=== PATIENT | female | born 1990 | race Caucasian/White ===

== ENCOUNTER 2021-03-02 13:28 | Observation (INO) | payer BC, SELFPAY ==
[2021-03-02 14:41] VITALS: BP 102/66; PULSE 66; TEMP 36.9; BMI 34.8
--- NOTE | 2021-03-02 14:41 | OBADM ---
This patient, Florencia Davey, admitted to the OB room [facility] Post 116 for observation. Patient/family oriented to hospital policies and general routines including ID bracelet, bed and alarms, visiting hours, pain management, procedures, bathroom and other care routines, personal items, smoking policy, room service/diet, and visiting hours. Patient/Family are encouraged to report perceived risks to care and to ask questions if they do not understand what they are told or what they should do.
[2021-03-02 14:52] LABS: Basophils Percent Auto 0.3 % (0.2-1.2); Eosinophils Percent Auto 0.3 % (0-4.4); Hemoglobin 12.9 g/dL (12.0-15.0); Immature Granulocyte Absolute 0.04 K/mm3 (0.00-0.031); Immature Granulocyte Percent A 0.4 % (0-0.5); Lymphocytes Absolute Auto 2.03 K/mm3 (0.9-3.2); Lymphocytes Percent Auto 18.8 % (18.3-44.2); Mean Corpuscular HGB Conc 33.9 g/dl (32-36); Mean Corpuscular Hemoglobin 32.3 pg (26-34); Mean Corpuscular Volume 95.2 fl (80-100); Mean Platelet Volume 10.6 fl (7.4-10.4); Monocytes Absolute Auto 0.8 K/mm3 (0.1-0.6); Neutrophils Absolute Auto 7.9 K/mm3 (1.3-6.7); Neutrophils Percent Auto 73.2 % (45.5-73.1); Platelet Count Result 295 k/mm3 (150-375); Red Blood Count 3.99 M/mm3 (4.2-5.4); Red Cell Distribution Width 13.4 % (11.5-14.5); White Blood Count 10.8 K/mm3 (4.5-10.0)
[2021-03-02 15:02] LABS: Alanine Aminotransferase 38 U/L (4-35); Albumin Level 3.7 g/dL (3.5-5.1); Alkaline Phosphatase 94 U/L (38-126); Anion Gap 7 mmol/L (8-16); Aspartate Amino Transferase 39 U/L (14-36); Bilirubin,Total 0.6 mg/dL (0.2-1.3); Blood Urea Nitrogen 9 mg/dL (7-17); Calcium 9.1 mg/dL (8.4-10.2); Carbon Dioxide 25 mmol/L (22-30); Chloride 104 mmol/L (98-107); Estimated Glomerular Filt Rate > 60; Glucose 77 mg/dL (65-105); Potassium 3.6 mmol/L (3.4-5.0); Sodium 136 mmol/L (137-145)
[2021-03-02] MEDS: DEXTROSE 5%/LACTATED RINGERS 1,000 ML 999 ML IV CONT (15:04)
--- NOTE | 2021-03-02 16:27 | P.PNOB_ITS ---
OB - Triage/Final Diagnosis Visit Information Date of evaluation: 03/02/21 Reason for evaluation: other ( dehydration in ) Comments/Additional reasons for admission: I have assessed the risk for this patient, Florencia Davey, and determined that she would benefit from observation care. Evaluation Laboratory results: Laboratory Tests 03/02/21 03/02/21 14:38 14:38 WBC 10.8 H RBC 3.99 L Hgb 12.9 Hct 38.0 MCV 95.2 MCH 32.3 MCHC 33.9 RDW 13.4 Plt Count 295 MPV 10.6 H Immature Gran % (Auto) 0.4 Neut % (Auto) 73.2 H Lymph % (Auto) 18.8 [place] % (Auto) 7.0 Eos % (Auto) 0.3 Baso % (Auto) 0.3 Lymph # (Auto) 2.03 [place] # (Auto) 0.8 H Eos # (Auto) 0.0 Baso # (Auto) 0.0 Abs Immat Gran (auto) 0.04 H Absolute Neuts (auto) 7.9 H Absolute Nucleated RBC 0.0 Nucleated RBC % 0.0 Sodium 136 L Potassium 3.6 Chloride 104 Carbon Dioxide 25 Anion Gap 7 L BUN 9 Creatinine 0.60 L Estim Creat Clear Calc Not Reportable Estimated GFR > 60 Glucose 77 Calcium 9.1 Total Bilirubin 0.6 AST 39 H ALT 38 H Alkaline Phosphatase 94 Total Protein 7.0 Albumin 3.7 Vital signs: Vital Signs - 24 hr 03/02/21 14:41 Temperature 98.5 F Pulse Rate 66 Blood Pressure 102/66
--- NOTE | 2021-03-02 16:50 | PC.NURSE ---
Dr. Alberto Harkins informed of lab results including slightly elevated ALT and AST. Informed pt had Pepcid already this morning. Pt denies nausea and pain and would like to eat and go home if possible. OK to order U/S of GB as outpatient since pt wasn't NPO prior to arrival. Discharge orders received.
== END 2021-03-02 17:26 | disposition home or self-care (01) ==
PROVIDERS: Admitting Provider Obstetrics & Gynecology; PCP Family Medicine; Visit Provider Obstetrics & Gynecology
DX: O26.892 Other specified pregnancy related conditions, second trimester (principal); E86.0 Dehydration; Z3A.19 19 weeks gestation of pregnancy
CPT/HCPCS: 36415; 80053; 85025; 96360; G0378; G0379; J7121

== ENCOUNTER 2021-03-08 08:38 | Outpatient (CLI) | payer BC, SELFPAY ==
--- NOTE | ~2021-03-08 | US_ITS ---
EXAMINATION: US right upper quadrant DATE: 03/08/2021 09:09 INDICATION: Upper abdominal pain TECHNIQUE: Multiple grayscale and Doppler ultrasound images of the abdomen were obtained. COMPARISON: None available FINDINGS: Bowel gas obscures visualization of the pancreas. The visualized portions of the pancreas a re unremarkable. The liver is normal with normal echogenicity and echotexture. No surface nodularity. Normal hepatopetal flow in the main portal vein. There is a 3/sludge in the nondistended gallbladder . No gallbladder wall thickening or pericholecystic fluid are identified. The normal common bile duct measures 3 mm. There was no sonographic Lutz sign. IMPRESSION: 1. Sludge or debris in the nondistended gallbladder. Reviewed, dictated and finalized at location B.
== END 2021-03-08 08:39 | disposition home or self-care (01) ==
LOC: ANHIMG 08:42
PROVIDERS: PCP Family Medicine; Visit Provider Obstetrics & Gynecology
DX: R10.10 Upper abdominal pain, unspecified (principal)
CPT/HCPCS: 76705

== ENCOUNTER 2021-04-06 10:17 | Observation (INO) | payer BC, SELFPAY ==
--- NOTE | ~2021-04-06 | US_ITS ---
US abdomen limited INDICATION: Abdominal pain PROCEDURE: Realtime right upper abdominal ultrasound. COMPARISON: No prior studies for comparison. FINDINGS: The pancreas is normal without focal mass or pancreatic ductal dilation. Liver echotexture is normal without focal mass or intrahepatic biliary dilatation. There is normal directional flow i n the portal vein. There is gallbladder sludge. Common bile duct measures 7 mm. No sonographic Lutz's sign. IMPRESSION: 1: Gallbladder sludge. Borderline size common duct measuring 7 mm. Reviewed, dictated and finalized at location A.
--- NOTE | ~2021-04-06 | MR_ITS ---
EXAMINATION: MR MRCP wo con/w 3D wo ind pp DATE: 04/07/2021 07:36 INDICATION: Gallbladder sludge. Elevated liver function tests. TECHNIQUE: Magnetic resonance imaging (MRI) of the abdomen was performed without intravenous contrast . Sequences included coronal T2-weighted SS-FSE, coronal T2-weighted FS SS-FSE, coronal T2-weighted F S FIESTA, axial T2-weighted FS FIESTA, axial T2-weighted FIESTA, sagittal T2-weighted SS-FSE, axial T 1-weighted dual-echo FSPGR, axial T2-weighted SS-FSE, axial T1-weighted LAVA, axial T2-weighted STIR FSE. Thick-slab T2-weighted FRFSE-XL images were obtained for magnetic resonance cholangiopancreatogr aphy (MRCP). Rotating maximum intensity projection 3-D reconstructions of the volumetric data were cr eated by the technologist. COMPARISON: None. FINDINGS: ABDOMEN MRCP: Mild intrahepatic biliary ductal dilation and dilation of the common bile duct to 9 mm in maximal diameter. There is an approximately 4-5 mm obstructing stone at the ampulla which can also be seen on the sagittal and coronal SS FSE images. ABDOMEN MRI: Heart size is normal. No pericardial effusion. Tiny bilateral posterior layering pleural effusions. The gallbladder is dilated to 3.7 cm in diameter and measuring 11.7 cm in length. There is dependentl y layering sludge within the gallbladder along but no additional low signal intensity gallstones. The re is no gallbladder wall thickening however there is trace amount of pericholecystic ascites. Liver is otherwise unremarkable. Spleen, pancreas and bilateral adrenal glands are normal. Mild bilateral h ydronephrosis which may be due to mass effect upon the ureters resulting from the gravid uterus which is not diagnostically evaluated. The fetus is in vertex position and the placenta is anterior. Visua lized portions of the bowels are unremarkable. No pathologically enlarged abdominal lymphadenopathy. Bones are unremarkable. IMPRESSION: 1. Choledocholithiasis with obstructing 4-5 mm stone at the ampulla with mild intra and extra hepatic biliary ductal dilation as well as mild dilation of the gallbladder with minimal pericholecystic asc ites. 2. Mild bilateral hydronephrosis likely resulting from extrinsic compression on the ureters resulting from the gravid uterus. 3. Tiny bilateral pleural effusions. Reviewed, dictated and finalized at location A. IMPRESSION: 1. Choledocholithiasis with obstructing 4-5 mm stone at the ampulla with mild i ntra and extra hepatic biliary ductal dilation as well as mild dilation of the gallbladder with minimal pericholecystic ascites. 2. Mild bilateral hydronephrosis likely resulting from extrinsic compression on the ureters resulting from the gravid uterus. 3. Tiny bilateral pleural effusions.
[2021-04-06 10:52] VITALS: BP 109/70; PULSE 73; TEMP 36.6
[2021-04-06] MEDS: DEXTROSE 5%/LACTATED RINGERS 1,000 ML 150 ML IV CONT ×3 (11:25→22:30)
[2021-04-06 11:26] LABS: Basophils Percent Auto 0.3 % (0.2-1.2); Eosinophils Absolute Auto 0.1 K/mm3 (0-0.3); Eosinophils Percent Auto 0.6 % (0-4.4); Hematocrit 38.3 % (37.0-47.0); Hemoglobin 13.3 g/dL (12.0-15.0); Immature Granulocyte Absolute 0.04 K/mm3 (0.00-0.031); Immature Granulocyte Percent A 0.3 % (0-0.5); Lymphocytes Percent Auto 11.8 % (18.3-44.2); Mean Corpuscular HGB Conc 34.7 g/dl (32-36); Mean Corpuscular Hemoglobin 33.1 pg (26-34); Mean Corpuscular Volume 95.3 fl (80-100); Mean Platelet Volume 10.4 fl (7.4-10.4); Monocytes Absolute Auto 0.7 K/mm3 (0.1-0.6); Monocytes Percent Auto 5.2 % (2.6-8.5); Neutrophils Absolute Auto 10.4 K/mm3 (1.3-6.7); Neutrophils Percent Auto 81.8 % (45.5-73.1); Platelet Count Result 334 k/mm3 (150-375); Red Blood Count 4.02 M/mm3 (4.2-5.4); Red Cell Distribution Width 13.8 % (11.5-14.5); White Blood Count 12.7 K/mm3 (4.5-10.0)
[2021-04-06] MEDS: FAMOTIDINE 20 MG/2 ML VIAL IV PUSH (11:26)
[2021-04-06 11:37] LABS: Alanine Aminotransferase 111 U/L (4-35); Albumin Level 3.7 g/dL (3.5-5.1); Alkaline Phosphatase 195 U/L (38-126); Anion Gap 6 mmol/L (8-16); Aspartate Amino Transferase 93 U/L (14-36); Bilirubin,Total 3.5 mg/dL (0.2-1.3); Blood Urea Nitrogen 7 mg/dL (7-17); Calcium 9.1 mg/dL (8.4-10.2); Carbon Dioxide 26 mmol/L (22-30); Chloride 105 mmol/L (98-107); Estimated Glomerular Filt Rate > 60; Glucose 76 mg/dL (65-110); Potassium 3.5 mmol/L (3.4-5.0); Sodium 137 mmol/L (137-145); Uric Acid 3.5 mg/dL (2.5-7.5)
[2021-04-06 12:04] VITALS: BMI 35.1
--- NOTE | 2021-04-06 12:05 | OBADM ---
This patient, Florencia Davey, admitted to the OB room [facility] Post 111 for observation. Patient/family oriented to hospital policies and general routines including ID bracelet, bed and alarms, visiting hours, pain management, procedures, bathroom and other care routines, personal items, smoking policy, room service/diet, and visiting hours. Patient/Family are encouraged to report perceived risks to care and to ask questions if they do not understand what they are told or what they should do.
--- NOTE | 2021-04-06 13:22 | PC.NURSE ---
Pt here with complaints of upper abdominal pain. States 02/20 had pain and vomiting, 03/08 had an ultrasound that showed gallbladder sludge. Has been drinking apple cider vinegar to help reduce gallbladder sludge. Pain was better and then worsened 04/03, states it feels worse when she takes a deep breath.
--- NOTE | 2021-04-06 16:27 | PM.IMHP ---
H&P: HPI History of Present Illness Date/Time: 04/06/21 16:27 Thirty-three year 1 para 1 admitted at with an EDC 10/19/2020, and EDC of 07/26/2021, presents at 24 weeks gestation with right upper quadrant pain. She has been hospitalized 20s and has an ultrasound that shows sludge in the gallbladder. She has been unable to keep much down and then was elevated liver function test. Otherwise antenatally things have gone well. She is admitted for IV hydration and support as well as consult with General surgery concerning her gallbladder. Chief Complaint: 24 week with right upper quadrant pain Review of Systems Review of Systems: All systems reviewed & are unremarkable except as noted in HPI and below Meds Home Medications and Allergies Home Medications Medication Instructions Recorded Confirmed Type PNV cmb#95-ferrous fumarate-FA 1 tablet PO DAILY 03/02/21 04/06/21 History [] cetirizine [Zyrtec] 10 mg PO DAILY 03/02/21 04/06/21 History sertraline [Zoloft] 25 mg PO DAILY 03/02/21 04/06/21 History hydroxyzine HCl 25 mg PO DAILY PRN 04/06/21 04/06/21 History omeprazole 20 mg PO BID 04/06/21 04/06/21 History Allergies Allergy/AdvReac Type Severity Reaction Status Date / Time orange (food color) Allergy Itching Verified 03/02/21 15:58 red dye AdvReac Gastrointestinal Verified 03/02/21 15:59 Upset Vital Signs Vital Signs - 24 hr 04/06/21 10:52 Temperature 97.8 F Pulse Rate 73 Blood Pressure 109/70 Exam Const: General: no acute distress Eyes: General: appearance normal, both eyes and all related structures Neck: Neck: supple and no JVD Thyroid: thyroid normal Resp: Effort & Inspection: normal respiratory effort Auscultation: clear to auscultation bilaterally Cardio: Rate: regular rate Rhythm: regular rhythm GI: Inspection: normal to inspection GI Palp: Yes abdominal tenderness ( Right upper quadrant pain present) Percussion: Yes normal to percussion : General: Yes bladder normal to palpation External Female Exam: normal external appearance Speculum Exam - Vagina: normal vaginal discharge and No vaginal bleeding Speculum Exam - Cervix: nontender Bimanual exam- vagina & uterus: bladder normal to palpation, No Cervical tenderness present and other ( uterus is gravid and soft with normal heart tones) OB/external & speculum: No vaginal bleeding Manual OB Exam: Not dilated nor effaced Skin: General skin exam: no rashes or lesions noted Extrem: General: normal to inspection and no edema Psych: Mental Status: mental status grossly normal Affect: normal affect H&P: Results Labs Labs: Short CBC 04/06/21 Range/Units 11:18 WBC 12.7 H (4.5-10.0) K/mm3 Hgb 13.3 (12.0-15.0) g/dL Hct 38.3 (37.0-47.0) % Plt Count 334 (150-375) k/mm3 BMP 04/06/21 11:18 Sodium 137 Potassium 3.5 Chloride 105 Carbon Dioxide 26 BUN 7 Creatinine 0.60 L Glucose 76 Calcium 9.1 Liver Function 04/06/21 Range/Units 11:18 Total Bilirubin 3.5 H (0.2-1.3) mg/dL AST 93 H (14-36) U/L ALT 111 H (4-35) U/L Alkaline Phosphatase 195 H (38-126) U/L Albumin 3.7 (3.5-5.1) g/dL Assessment and Plan Additional Plan impression common 24 week with right upper quadrant pain suspected to be related to gallbladder Plan: IV hydration support. Again a surgical console. Watch for signs of labor and delivery
--- NOTE | 2021-04-06 17:14 | PM.CNGS ---
Assessment and Plan Assessment and plan (1) Right upper quadrant pain: Code(s): R10.11 - Right upper quadrant pain Status: Acute Assessment and Plan: I have reviewed the patient's ultrasound from February and ordered a repeat ultrasound today which shows gallbladder sludge and borderline dilated common bile duct measuring 7 mm. She is very symptomatic and states that at times she has had trouble getting enough nutrition and has even lost some weight during the . With her dilated bile duct and elevated liver enzymes, this could signify an obstruction within the common bile duct. I would like to plan for an MRI tomorrow to assess for any potential obstructive process. With how symptomatic she is, laparoscopic cholecystectomy could be considered during her . I discussed with her that we do not typically recommend surgery if it can be delayed until after , but in her case with how symptomatic she is, she may benefit from surgery at this stage in her . I discussed with her that there are some risks to both herself and her to proceeding with surgery during 2nd trimester, but these risks are still generally low. If she has evidence of common bile duct obstruction, she may need GI consultation before proceeding with laparoscopic cholecystectomy. Will await MRI results, plan for repeat labs in the morning, and discuss further with the patient tomorrow. Will allow her to have a low-fat diet this evening and make her NPO after midnight. (2) Abnormal gallbladder ultrasound: Code(s): R93.2 - Abnormal findings on diagnostic imaging of liver and biliary tract Status: Acute (3) Elevated liver enzymes: Code(s): R74.8 - Abnormal levels of other serum enzymes Status: Acute (4) 24 weeks gestation of : Code(s): Z3A.24 - 24 weeks gestation of Status: Acute History of Present Illness Consult details Consult date: 04/06/21 Reason for consult: abdominal pain Requesting physician: Flavio Marshall MD Narrative: This is a 31-year-old woman who was admitted to the OB department for observation for abdominal pain during . She is currently 24 weeks . She has been experiencing upper abdominal pain for the past 5-6 weeks. She states that when this 1st started, it was waking her up from sleep but this was not related to anything in particular she ate. She has been experiencing nausea and vomiting along with this. Her pains have become more frequent and constant now. She states that even eating ice chips is causing some upper abdominal pain. She had an ultrasound 1 month ago which showed evidence of gallbladder sludge. She denies any fevers or chills. She was put omeprazole, but this does not appear to be helping. Review of Systems Review of Systems: All systems reviewed & are unremarkable except as noted in HPI and below Constitutional: Constitutional: Denies chills and Denies fever(s) Eyes: Eyes: Denies change in vision ENT: Denies hearing loss, Denies neck pain and Denies sore throat Cardiovascular: Cardiovascular: Denies chest pain and Denies dyspnea Respiratory: Respiratory: Denies cough, Denies dyspnea and Denies wheezing Gastrointestinal: Gastrointestinal: Reports as per HPI Comments: Twenty-four weeks Genitourinary: Genitourinary: Denies hematuria and Denies dysuria Musculoskeletal: Musculoskeletal: Denies arthralgias, Denies joint swelling and Denies neck pain Allergic/Immunologic: Allergic/Immunologic: Denies wheezing [facility] Past Medical History Medical History (Updated 04/06/21 @ 17:27 by John Paul Torre DO) No significant medical problems Surgical History Surgical History (Updated 04/06/21 @ 17:24 by John Paul Torre DO) History of tonsillectomy and adenoidectomy Family History Family History Mother No problems noted.
[2021-04-06 17:58] LABS: Bilirubin Indirect 1.1 mg/dL (0-1.1)
[2021-04-06 18:30] VITALS: RESP 18
[2021-04-06 19:51] VITALS: RESP 18; TEMP 36.9
[2021-04-06 20:03] VITALS: BP 105/62; PULSE 55
[2021-04-06] MEDS: HYDROcodone/acetaminophen (*CRX) 5-325 MG TABLET PO ×2 (20:17→23:57)
[2021-04-06 23:57] VITALS: BP 121/62; PULSE 50
[2021-04-07] VITALS (27 sets, daily range): BP systolic 91–126; BP diastolic 57–65; PULSE 45–63; RESP 16; TEMP 36.4–36.6; O2SAT 98–100
[2021-04-07] MEDS: HYDROcodone/acetaminophen (*CRX) 5-325 MG TABLET PO ×5 (04:28→22:08)
[2021-04-07] MEDS: DEXTROSE 5%/LACTATED RINGERS 1,000 ML 150 ML IV CONT ×3 (04:28→18:46)
[2021-04-07] MEDS: FAMOTIDINE 20 MG/2 ML VIAL IV PUSH ×2 (04:31→17:37)
[2021-04-07 04:55] LABS: Hematocrit 35.1 % (37.0-47.0); Mean Corpuscular HGB Conc 34.2 g/dl (32-36); Mean Corpuscular Hemoglobin 32.1 pg (26-34); Mean Corpuscular Volume 93.9 fl (80-100); Mean Platelet Volume 10.3 fl (7.4-10.4); Platelet Count Result 315 k/mm3 (150-375); Red Blood Count 3.74 M/mm3 (4.2-5.4); Red Cell Distribution Width 13.4 % (11.5-14.5); White Blood Count 9.8 K/mm3 (4.5-10.0)
[2021-04-07 05:51] LABS: Alanine Aminotransferase 89 U/L (4-35); Albumin Level 3.3 g/dL (3.5-5.1); Anion Gap 5 mmol/L (8-16); Aspartate Amino Transferase 62 U/L (14-36); Bilirubin,Total 3.9 mg/dL (0.2-1.3); Blood Urea Nitrogen 4 mg/dL (7-17); Calcium 8.8 mg/dL (8.4-10.2); Carbon Dioxide 27 mmol/L (22-30); Chloride 105 mmol/L (98-107); Estimated CRCL calculation 109 ml/min; Estimated Glomerular Filt Rate > 60; Glucose 96 mg/dL (65-110); Potassium 3.4 mmol/L (3.4-5.0); Sodium 137 mmol/L (137-145); Total Protein 6.2 g/dL (6.3-8.2)
[2021-04-07 05:52] LABS: Alkaline Phosphatase 152 U/L (38-126); Lipase 62 U/L (23-300)
--- NOTE | 2021-04-07 08:41 | PM.OBPNVD ---
OB - PN: Subj Subjective Date/time seen: 04/07/21 08:41 Doing well this morning and had MRI with results pending OB - PN: Obj Data Labs CBC & Chem 7: 04/07/21 04:37 04/07/21 04:37 Labs: Laboratory Results - last 24 hr 04/06/21 04/06/21 04/06/21 11:18 11:18 17:29 WBC 12.7 H RBC 4.02 L Hgb 13.3 Hct 38.3 MCV 95.3 MCH 33.1 MCHC 34.7 RDW 13.8 Plt Count 334 MPV 10.4 Immature Gran % (Auto) 0.3 Neut % (Auto) 81.8 H Lymph % (Auto) 11.8 L [place] % (Auto) 5.2 Eos % (Auto) 0.6 Baso % (Auto) 0.3 Lymph # (Auto) 1.50 [place] # (Auto) 0.7 H Eos # (Auto) 0.1 Baso # (Auto) 0.0 Abs Immat Gran (auto) 0.04 H Absolute Neuts (auto) 10.4 H Absolute Nucleated RBC 0.0 Nucleated RBC % 0.0 Sodium 137 Potassium 3.5 Chloride 105 Carbon Dioxide 26 Anion Gap 6 L BUN 7 Creatinine 0.60 L Estim Creat Clear Calc Not Reportable Estimated GFR > 60 Glucose 76 Uric Acid 3.5 Calcium 9.1 Total Bilirubin 3.5 H Direct Bilirubin 1.0 H Indirect Bilirubin 1.1 AST 93 H ALT 111 H Alkaline Phosphatase 195 H Total Protein 7.0 Albumin 3.7 Lipase 04/07/21 04/07/21 04:37 04:37 WBC 9.8 RBC 3.74 L Hgb 12.0 Hct 35.1 L MCV 93.9 MCH 32.1 MCHC 34.2 RDW 13.4 Plt Count 315 MPV 10.3 Immature Gran % (Auto) Neut % (Auto) Lymph % (Auto) [place] % (Auto) Eos % (Auto) Baso % (Auto) Lymph # (Auto) [place] # (Auto) Eos # (Auto) Baso # (Auto) Abs Immat Gran (auto) Absolute Neuts (auto) Absolute Nucleated RBC Nucleated RBC % Sodium 137 Potassium 3.4 Chloride 105 Carbon Dioxide 27 Anion Gap 5 L BUN 4 L Creatinine 0.60 L Estim Creat Clear Calc 109 Estimated GFR > 60 Glucose 96 Uric Acid Calcium 8.8 Total Bilirubin 3.9 H Direct Bilirubin Indirect Bilirubin AST 62 H ALT 89 H Alkaline Phosphatase 152 H Total Protein 6.2 L Albumin 3.3 L Lipase 62 Imaging Radiologist's impression: Impressions Abdomen Ultrasound 04/06/21 12:38 IMPRESSION: 1: Gallbladder sludge. Borderline size common duct measuring 7 mm. OB - PN A/P Plan Comments: Await results of MRI and surgical consultation decision Time Spent With Patient Time: Total time spent is greater than 50% in coordination of care (as documented) at patient's floor/unit and/or counseling patient: Time with patient: less than 15 minutes Review of Systems Review of Systems: All systems reviewed & are unremarkable except as noted in HPI and below Exam Const: General: no acute distress Eyes: General: appearance normal, both eyes and all related structures Neck: Neck: supple and no JVD Thyroid: thyroid normal Resp: Effort & Inspection: normal respiratory effort Auscultation: clear to auscultation bilaterally Cardio: Rate: regular rate Rhythm: regular rhythm GI: Inspection: non-distended GI Palp: Yes Soft to palpation, No Tenderness to palpation present (GI) and No Guarding due to palpation present (GI) Auscultation: normal bowel sounds : General: Yes bladder normal to palpation External Female Exam: normal external appearance Speculum Exam - Vagina: normal vaginal discharge and No vaginal bleeding Speculum Exam - Cervix: nontender Bimanual exam- vagina & uterus: bladder normal to palpation and No Cervical tenderness present OB/external & speculum: No vaginal bleeding Skin: General skin exam: no rashes or lesions noted Extrem: General: normal to inspection and no edema Psych: Mental Status: mental status grossly normal Affect: normal affect
--- NOTE | 2021-04-07 11:48 | PM.PNGS ---
Progress Note: A&P Assessment and Plan (1) Choledocholithiasis with obstruction: Code(s): K80.51 - Calculus of bile duct without cholangitis or cholecystitis with obstruction Status: Acute Assessment and Plan: I reviewed the MRCP with radiology today and then discussed patient with Dr. Carolina. She has evidence of choledocholithiasis and will likely require ERCP. Will await further GI eval. Could consider discharge over weekend and she can follow up with me early next week. Can still consider lap sivan soon to prevent recurrent problems, or could try to hold off surgery until after delivering baby. (2) 24 weeks gestation of : Code(s): Z3A.24 - 24 weeks gestation of Status: Acute (3) Right upper quadrant pain: Code(s): R10.11 - Right upper quadrant pain Status: Acute (4) Abnormal gallbladder ultrasound: Code(s): R93.2 - Abnormal findings on diagnostic imaging of liver and biliary tract Status: Acute (5) Elevated liver enzymes: Code(s): R74.8 - Abnormal levels of other serum enzymes Status: Acute Subjective Subjective Date/Time Seen: 04/07/21 11:48 Interval history: Patient still having RUQ pain. Urine not very dark. Exam GI: Inspection: other (Gravid uterus) GI Palp: Yes Tenderness to palpation present (GI) (RUQ) Objective Data Vital Signs Vital Signs: Vital Signs - 24 hr 04/06/21 18:30 04/06/21 19:51 04/06/21 20:03 Temperature 36.9 C Pulse Rate 55 L Respiratory Rate 18 18 Blood Pressure 105/62 Pulse Oximetry 04/06/21 23:57 04/07/21 00:15 04/07/21 04:28 Temperature 36.6 C Pulse Rate 50 L 52 L Respiratory Rate 16 Blood Pressure 121/62 126/60 Pulse Oximetry 04/07/21 04:31 04/07/21 06:40 04/07/21 07:46 Temperature 36.6 C Pulse Rate 45 L 47 L Respiratory Rate Blood Pressure 125/65 93/58 L Pulse Oximetry 99 04/07/21 07:51 04/07/21 07:53 04/07/21 07:56 Temperature Pulse Rate 53 L Respiratory Rate Blood Pressure 103/57 L Pulse Oximetry 99 99 04/07/21 08:01 04/07/21 08:06 04/07/21 08:11 Temperature Pulse Rate Respiratory Rate Blood Pressure Pulse Oximetry 100 99 98 04/07/21 08:16 04/07/21 08:21 04/07/21 08:26 Temperature Pulse Rate Respiratory Rate Blood Pressure Pulse Oximetry 99 99 99 04/07/21 08:31 04/07/21 08:36 04/07/21 08:39 Temperature Pulse Rate Respiratory Rate Blood Pressure Pulse Oximetry 99 100 99 Intake/Output Intake/Output: Intake & Output 04/04/21 04/05/21 04/06/21 04/07/21 23:59 23:59 23:59 23:59 Intake Total 2000 1000 Output Total 600 350 Balance 1400 650 Meds/Results Medications: Active Medications Generic Name Dose Route Start Last Admin Trade Name Freq PRN Reason Stop Dose Admin Hydrocodone Bitart/Acetaminophen 1 - 2 tab 04/06/21 19:43 04/07/21 08:55 Hydrocodone/Acetaminophen (*Crx) 5-325 Mg Tablet PO 1 tab Q4-6H PRN Administration Pain Famotidine 20 mg 04/06/21 11:02 04/07/21 04:31 Famotidine 20 Mg/2 Ml Vial IV PUSH 20 mg Q12HR PRN Administration Heartburn Dextrose/Lactated Ringer's 1,000 mls @ 150 mls/hr 04/06/21 11:05 04/07/21 04:28 Dextrose 5%/Lactated Ringers IV CONT 150 mls/hr .[id number] KEITH Administration Metoclopramide HCl 10 mg 04/06/21 11:02 Metoclopramide Hcl Inj 10 Mg/2 Ml Vial IV PUSH Q6HR PRN Nausea Radiology Results: ITS Impressions Abdomen Ultrasound 04/06/21 12:38 IMPRESSION: 1: Gallbladder sludge. Borderline size common duct measuring 7 mm. MRCP 04/07/21 10:20 IMPRESSION: 1. Choledocholithiasis with obstructing 4-5 mm stone at the ampulla with mild intra and extra hepatic biliary ductal dilation as well as mild dilation of the gallbladder with minimal pericholecystic ascites. 2. Mild bilateral hydronephrosis likely resulting from extrinsic diana
--- NOTE | 2021-04-07 12:17 | WPDANESEPPF ---
Anes - Initial Pre Proc Eval Procedure: Operation Date: 04/07/21 14:15 Proposed Procedures p Endoscopic Retro Cholangiopancreatogram - Demarco Carolina MD Date/Time: 04/07/21 12:17 Surgeon: Flavio Marshall MD Pre Op Diagnosis: Abdomial Pain Patient Data Age: 31 Gender: F Height: 1.54 m Weight: 83 kg Last Vital Signs Temp 36.6 C 04/07/21 06:40 Pulse 53 L 04/07/21 07:53 Resp 16 04/07/21 00:15 BP 103/57 L 04/07/21 07:53 Pulse Ox 99 04/07/21 08:39 Allergies Allergy/AdvReac Type Severity Reaction Status Date / Time orange (food color) Allergy Itching Verified 03/02/21 15:58 red dye AdvReac Gastrointestinal Verified 03/02/21 15:59 Upset Home Medications Medication Instructions Recorded Confirmed Type PNV cmb#95-ferrous fumarate-FA 1 tablet PO DAILY 03/02/21 04/06/21 History [] cetirizine [Zyrtec] 10 mg PO DAILY 03/02/21 04/06/21 History sertraline [Zoloft] 25 mg PO DAILY 03/02/21 04/06/21 History hydroxyzine HCl 25 mg PO DAILY PRN 04/06/21 04/06/21 History omeprazole 20 mg PO BID 04/06/21 04/06/21 History Laboratory Tests 04/06/21 04/07/21 04/07/21 17:29 04:37 04:37 WBC 9.8 K/mm3 K/mm3 (4.5-10.0) RBC 3.74 M/mm3 L M/mm3 (4.2-5.4) Hgb 12.0 g/dL g/dL (12.0-15.0) Hct 35.1 % L % (37.0-47.0) MCV 93.9 fl fl (80-100) MCH 32.1 pg pg (26-34) MCHC 34.2 g/dl g/dl (32-36) RDW 13.4 % % (11.5-14.5) Plt Count 315 k/mm3 k/mm3 (150-375) MPV 10.3 fl fl (7.4-10.4) Sodium 137 mmol/L mmol/L (137-145) Potassium 3.4 mmol/L mmol/L (3.4-5.0) Chloride 105 mmol/L mmol/L (98-107) Carbon Dioxide 27 mmol/L mmol/L (22-30) Anion Gap 5 mmol/L L mmol/L (8-16) BUN 4 mg/dL L mg/dL (7-17) Creatinine 0.60 mg/dL L mg/dL (0.7-1.0) Estim Creat Clear Calc 109 ml/min ml/min Estimated GFR > 60 (59 - ) Glucose 96 mg/dL mg/dL (65-110) Calcium 8.8 mg/dL mg/dL (8.4-10.2) Total Bilirubin 3.9 mg/dL H mg/dL (0.2-1.3) Direct Bilirubin 1.0 mg/dL H mg/dL (0-0.3) Indirect Bilirubin 1.1 mg/dL mg/dL (0-1.1) AST 62 U/L H U/L (14-36) ALT 89 U/L H U/L (4-35) Alkaline Phosphatase 152 U/L H U/L (38-126) Total Protein 6.2 g/dL L g/dL (6.3-8.2) Albumin 3.3 g/dL L g/dL (3.5-5.1) Lipase 62 U/L U/L (23-300) Patient hx anesthesia problems: none Family hx anesthesia problems: none [facility] Past Medical History Medical History (Updated 04/07/21 @ 12:18 by Ben Cooper MD) 24 weeks gestation of Choledocholithiasis with obstruction No significant medical problems Surgical History Surgical History (Updated 04/06/21 @ 17:24 by John Paul Torre DO) History of tonsillectomy and adenoidectomy Family History Family History (Updated 04/06/21 @ 17:25 by John Paul Torre DO) Mother No problems noted. Father No problems noted. Social History Social History (Updated 04/06/21 @ 17:24 by John Paul Torre DO) Smoking status: Never smoker Alcohol intake: never Anes - Eval Final PreProcedure Day of Procedure 04/07/21 12:17 Patient weight: obese Heart: regular rate and rhythm Lungs: clear to auscultation and normal air movement Airway: Mallampati scale class II Neurological: alert and oriented Last oral intake: >/= 8 hours ASA classification: III Emergent: no Anesthetic plan: proceed Anesthesia type and monitoring: general ETT Informed Consent: The patient's anesthetic plan and its attendant risks and benefits were discussed with the patient/family/POA. Questions were solicited and answers provided to the satisfaction of the patient/family/POA.
--- NOTE | 2021-04-07 14:15 | PC.NURSE ---
Discussed plan of care with pt. Dr. Cooper in to speak with pt about reasons for transfer.
--- NOTE | 2021-04-07 14:35 | WPDGICN ---
Assessment and Plan Assessment and plan (1) Choledocholithiasis with obstruction: Code(s): K80.51 - Calculus of bile duct without cholangitis or cholecystitis with obstruction Status: Acute Assessment and Plan: patient needs ERCP which I can perform here but the main problem would be if she goes into labor while I perform the procedure because we do not have the resources to support the at 24 weeks. This was discuss with surgery and anesthesia, primary will transfer patient to a facility with NICU capability in case is needed. medical management for now to control pain and nausea (2) 24 weeks gestation of : Code(s): Z3A.24 - 24 weeks gestation of Status: Acute Assessment and Plan: by obstetric team (3) Elevated liver enzymes: Code(s): R74.8 - Abnormal levels of other serum enzymes Status: Acute Assessment and Plan: biliary source, monitor liver enzymes needs ERCP (4) Right upper quadrant pain: Code(s): R10.11 - Right upper quadrant pain Status: Acute (5) Nausea and vomiting in adult: Code(s): R11.2 - Nausea with vomiting, unspecified Status: Acute GI Consult Note Consult date/time: 04/07/21 14:35 Reason for consult: choledocholithiasis HPI: Florencia Davey is a 31 year old female currently with 24 weeks (this is her second ) and admitted to OB service. She is here with intermittent upper abdominal pain with radiation to RUQ for the past 5-6 weeks. She had an ultrasound 1 month ago which showed evidence of gallbladder sludge (reviewed). Admitted here with worsening abdominal pain and nausea and vomiting, also had elevated liver enzymes, bili 3.9, also elevated transaminases. Finally had MRCP that showed choledocholithiasis with obstructing 4-5 mm stone at the ampulla with mild intra and extra hepatic biliary ductal dilation as well as mild dilation of the gallbladder with minimal pericholecystic ascites. Review of Systems Constitutional: Constitutional: Denies chills Eyes: Eyes: Denies blurry vision ENT: Reports Normal hearing present Cardiovascular: Cardiovascular: Denies chest pain Respiratory: Respiratory: Denies dyspnea Gastrointestinal: Gastrointestinal: Reports abdominal pain, Reports nausea and Reports vomiting Genitourinary: Genitourinary: Denies hematuria Musculoskeletal: Musculoskeletal: Denies arthralgias Integumentary/Breasts: Skin/Breast: Reports system reviewed and no additional complaints, except as docu Neurologic: Reports system reviewed and no additional complaints, except as documented Psychiatric: Psychiatric: Reports no additional psychiatric complaints PMFSH Past Medical History Medical History (Updated 04/07/21 @ 14:39 by Demarco Carolina MD) 24 weeks gestation of Choledocholithiasis with obstruction Nausea and vomiting in adult No significant medical problems Surgical History Surgical History (Updated 04/06/21 @ 17:24 by John Paul Torre DO) History of tonsillectomy and adenoidectomy Family History Family History (Updated 04/06/21 @ 17:25 by John Paul Torre DO) Mother No problems noted. Father No problems noted. Social History Social History (Updated 04/06/21 @ 17:24 by John Paul Torre DO) Smoking status: Never smoker Alcohol intake: never Meds Home Medications and Allergies Home Medications Medication Instructions Recorded Confirmed Type PNV cmb#95-ferrous fumarate-FA 1 tablet PO DAILY 03/02/21 04/06/21 History [] cetirizine [Zyrtec] 10 mg PO DAILY 03/02/21 04/06/21 History sertraline [Zoloft] 25 mg PO DAILY 03/02/21 04/06/21 History hydroxyzine HCl 25 mg PO DAILY PRN 04/06/21 04/06/21 History omeprazole 20 mg PO BID 04/06/21 04/06/21 History Allergies Allergy/AdvReac Type Severity Reaction Status Date / Time orange (food color) Allergy Itching Verified 03/02/21 15
--- NOTE | 2021-04-07 18:35 | PC.NURSE ---
Dr. Craig from [facility] called to get information on this patient. Stated they have concerns with delaying transfer if the patient is going to need an ERCP right away. Discussed MRI and lab results. Recommendation to keep pt on clear liquids and to start antibiotics. Will call Dr. Jacobs for orders.
[2021-04-07] MEDS: SERTRALINE HCL 25 MG TABLET PO (20:56)
[2021-04-08 01:35] VITALS: BP 83/52; PULSE 51
[2021-04-08] MEDS: DEXTROSE 5%/LACTATED RINGERS 1,000 ML 150 ML IV CONT ×2 (01:35→07:38)
[2021-04-08 02:00] VITALS: TEMP 36.6
[2021-04-08] MEDS: HYDROcodone/acetaminophen (*CRX) 5-325 MG TABLET PO ×2 (02:10→05:53)
[2021-04-08 05:54] VITALS: BP 111/59; PULSE 48
[2021-04-08 06:17] VITALS: TEMP 36.6
[2021-04-08] MEDS: SERTRALINE HCL 25 MG TABLET PO (07:04)
--- NOTE | 2021-04-08 08:12 | PC.NURSE ---
Dr. Jacobs in department and at bedside. Plan of care discussed and reviewed with patient. Patient is agreeable to transfer of care to [facility].
--- NOTE | 2021-04-08 08:12 | P.PNOB_ITS ---
OB - PN: Subj Subjective Date/time seen: 04/08/21 08:12 his discussed transfer with [facility] physicians and maternal medicine is agreeable to accept the patient. They will administer steroids when she is there and are agreeable with the care thus far. OB - PN: Obj Data Labs CBC & Chem 7: 04/07/21 04:37 04/07/21 04:37 Imaging Radiologist's impression: Impressions MRCP 04/07/21 10:20 IMPRESSION: 1. Choledocholithiasis with obstructing 4-5 mm stone at the ampulla with mild intra and extra hepatic biliary ductal dilation as well as mild dilation of the gallbladder with minimal pericholecystic ascites. 2. Mild bilateral hydronephrosis likely resulting from extrinsic compression on the ureters resulting from the gravid uterus. 3. Tiny bilateral pleural effusions. OB - PN A/P Plan Comments: Will proceed with transfer to higher acuity hospital Time Spent With Patient Time: Total time spent is greater than 50% in coordination of care (as documented) at patient's floor/unit and/or counseling patient: Time with patient: less than 15 minutes Review of Systems Review of Systems: All systems reviewed & are unremarkable except as noted in HPI and below Exam Const: General: no acute distress Eyes: General: appearance normal, both eyes and all related structures Neck: Neck: supple and no JVD Thyroid: thyroid normal Resp: Effort & Inspection: normal respiratory effort Auscultation: clear to auscultation bilaterally Cardio: Rate: regular rate Rhythm: regular rhythm GI: Inspection: non-distended GI Palp: Yes Soft to palpation, No Tenderness to palpation present (GI) and No Guarding due to palpation present (GI) Auscultation: normal bowel sounds : General: Yes bladder normal to palpation External Female Exam: normal external appearance Speculum Exam - Vagina: normal vaginal discharge and No vaginal bleeding Speculum Exam - Cervix: nontender Bimanual exam- vagina & uterus: bladder normal to palpation and No Cervical tenderness present OB/external & speculum: No vaginal bleeding Skin: General skin exam: no rashes or lesions noted Extrem: General: normal to inspection and no edema Psych: Mental Status: mental status grossly normal Affect: normal affect
--- NOTE | 2021-04-08 08:13 | PM.DS ---
DS: Admitting Diagnosis Admitting Diagnosis 24 week with right upper quadrant pain an obstructing stone in ampulla DS: Summary Hospital Course Hospital Course: the patient was admitted for workup of right upper quadrant pain at 24 weeks. She underwent MRI with MRCP and obstructing stone was seen consistent with her symptoms. Consultation was undertaken with GI and surgery who agreed that she required a cholecystectomy and ERCP. Anesthesia was unable to perform this due to fear of the patient's prematurity. Arrangements were made with [facility] to transfer the patient and proceed with the above-named procedures. Time Spent with Patient Time attestation: Total time spent providing and/or coordinating discharge services: Exam Const: General: no acute distress Eyes: General: appearance normal, both eyes and all related structures Neck: Neck: supple and no JVD Thyroid: thyroid normal Resp: Effort & Inspection: normal respiratory effort Auscultation: clear to auscultation bilaterally Cardio: Rate: regular rate Rhythm: regular rhythm GI: Inspection: non-distended GI Palp: Yes Soft to palpation, No Tenderness to palpation present (GI) and No Guarding due to palpation present (GI) Auscultation: normal bowel sounds : General: Yes bladder normal to palpation External Female Exam: normal external appearance Speculum Exam - Vagina: normal vaginal discharge and No vaginal bleeding Speculum Exam - Cervix: nontender Bimanual exam- vagina & uterus: bladder normal to palpation and No Cervical tenderness present OB/external & speculum: No vaginal bleeding Skin: General skin exam: no rashes or lesions noted Extrem: General: normal to inspection and no edema Psych: Mental Status: mental status grossly normal Affect: normal affect Discharge Plan Discharge Attending physician on discharge: Flavio Marshall Consulting providers: John Paul Torre Discharging Clinician: Flavio Marshall Patient Disposition: Acute Care Hospital Activity: no preference Diet: low fat Follow-up/Referrals: Flavio Marshall MD [Physician] - Discharge Medications: Continued cetirizine [Zyrtec] 10 mg Tablet 10 mg PO DAILY RF: 0 sertraline [Zoloft] 25 mg Tablet 25 mg PO DAILY RF: 0 PNV cmb#95-ferrous fumarate-FA [] 28 mg iron- 800 mcg Tablet 1 tablet PO DAILY RF: 0 hydroxyzine HCl 25 mg Tablet 25 mg PO DAILY PRN (Reason: Anxiety) RF: 0 omeprazole 20 mg Tablet,Delayed Release (Dr/Ec) 20 mg PO BID RF: 0 Date of admission: 04/06/21 10:17 Primary Care Provider: Nabeel,Kishore Abreu Admitting Provider: Flavio Marshall Attending physician on admission: Flavio Marshall Condition: Stable
[2021-04-08 08:53] VITALS: BP 111/59; PULSE 50; PULSE 54; O2SAT 99
--- NOTE | 2021-04-08 09:16 | PC.NURSE ---
[facility] transport team at bedside, patient taken via stretch for transport to [facility]. Patient stable upon transfer for and report given to JOLENE Diazpostal transportation clerk nurse.
== END 2021-04-08 09:17 | disposition short-term general hospital (02) ==
PROVIDERS: Surgery; Admitting Provider Obstetrics & Gynecology; PCP Family Medicine; Visit Provider Obstetrics & Gynecology
DX: O99.612 Diseases of the digestive system complicating pregnancy, second trimester (principal); K80.51 Calculus of bile duct without cholangitis or cholecystitis with obstruction; R10.11 Right upper quadrant pain; Z3A.24 24 weeks gestation of pregnancy; R93.2 Abnormal findings on diagnostic imaging of liver and biliary tract; R74.8 Abnormal levels of other serum enzymes; R11.2 Nausea with vomiting, unspecified
CPT/HCPCS: 36415; 74181; 76376; 76705; 80053; 82248; 83690; 84550; 85025; 85027; 96361; 96365; 96366; 96375; 96376; A9270; G0378; G0379; J2543; J7121

== ENCOUNTER 2021-07-20 06:28 | Inpatient (IN) | payer BC, SELFPAY ==
[2021-07-20] VITALS (84 sets, daily range): BP systolic 71–132; BP diastolic 35–89; PULSE 51–93; RESP 18; TEMP 36.2–37.3; O2SAT 97–100; BMI 35.7
--- NOTE | 2021-07-20 07:07 | LDADM ---
This patient, Florencia Davey, was admitted to Labor/Delivery/Recovery 109 on 07/20/21 at 06:28. Plans for labor, pain management and were discussed with patient. Patient/family oriented to hospital policies and general routines including ID bracelet, bed and alarms, visiting hours, pain management, procedures, bathroom and other care routines, personal items, smoking policy, room service/diet and guest tray routines, infant security routines, and visiting hours. Patient/Family are encouraged to report perceived risks to care and to ask questions if they do not understand what they are told or what they should do. See OBIX for further documentation.
[2021-07-20 07:19] LABS: Basophils Absolute Auto 0.1 K/mm3 (0.0-0.1); Basophils Percent Auto 0.4 % (0.2-1.2); Eosinophils Absolute Auto 0.1 K/mm3 (0-0.3); Eosinophils Percent Auto 0.7 % (0-4.4); Hematocrit 39.4 % (37.0-47.0); Hemoglobin 13.6 g/dL (12.0-15.0); Immature Granulocyte Absolute 0.03 K/mm3 (0.00-0.031); Immature Granulocyte Percent A 0.2 % (0-0.5); Lymphocytes Absolute Auto 2.82 K/mm3 (0.9-3.2); Lymphocytes Percent Auto 23.4 % (18.3-44.2); Mean Corpuscular HGB Conc 34.5 g/dl (32-36); Mean Corpuscular Hemoglobin 31.8 pg (26-34); Mean Corpuscular Volume 92.1 fl (80-100); Mean Platelet Volume 10.5 fl (7.4-10.4); Monocytes Absolute Auto 0.8 K/mm3 (0.1-0.6); Monocytes Percent Auto 6.6 % (2.6-8.5); Neutrophils Absolute Auto 8.3 K/mm3 (1.3-6.7); Neutrophils Percent Auto 68.7 % (45.5-73.1); Platelet Count Result 343 k/mm3 (150-375); Red Blood Count 4.28 M/mm3 (4.2-5.4); Red Cell Distribution Width 14.6 % (11.5-14.5); White Blood Count 12.1 K/mm3 (4.5-10.0)
[2021-07-20] MEDS: OXYTOCIN 30 UNITS/NS 500 ML 30 UNITS/500 ML BAG IV CONT (07:26)
[2021-07-20] MEDS: LACTATED RINGERS 1,000 ML 125 ML IV CONT ×2 (07:26→08:14)
--- NOTE | 2021-07-20 07:40 | PM.IMHP ---
H&P: HPI History of Present Illness Date/Time: 07/20/21 07:40 31-year-old 2 para 0101 whose last menstrual period was 10/19/2020, EDC is 07/26/2021. Presents at 39 and 1/7 weeks gestation for induction of labor. Cervix is favorable. was complicated by cholecystectomy during her . Ten week ultrasound confirms date and she is negative for group B strep Chief Complaint: for induction of labor at term Review of Systems Review of Systems: All systems reviewed & are unremarkable except as noted in HPI and below PMFSH Past Medical History Medical History 24 weeks gestation of Choledocholithiasis with obstruction Nausea and vomiting in adult No significant medical problems Surgical History Surgical History History of tonsillectomy and adenoidectomy Family History Family History Mother Hyperthyroidism Father Asthma Social History Social History Smoking status: Never smoker Alcohol intake: never Substance use: never Spiritual care concerns: No Meds Home Medications and Allergies Home Medications Medication Instructions Recorded Confirmed Type PNV cmb#95-ferrous fumarate-FA 1 tablet PO DAILY 03/02/21 07/20/21 History [] sertraline [Zoloft] 25 mg PO DAILY 03/02/21 07/20/21 History hydroxyzine HCl 25 mg PO DAILY PRN 04/06/21 07/20/21 History omeprazole 20 mg PO BID 04/06/21 07/20/21 History Allergies Allergy/AdvReac Type Severity Reaction Status Date / Time latex Allergy Itching Verified 06/30/21 14:37 orange (food color) Allergy Itching Verified 03/02/21 15:58 red dye AdvReac Gastrointestinal Verified 03/02/21 15:59 Upset Vital Signs Vital Signs - 24 hr 07/20/21 07:34 Pulse Rate 63 Blood Pressure 123/79 Exam Const: General: no acute distress Eyes: General: appearance normal, both eyes and all related structures Neck: Neck: supple and no JVD Thyroid: thyroid normal Resp: Effort & Inspection: normal respiratory effort Auscultation: clear to auscultation bilaterally Cardio: Rate: regular rate Rhythm: regular rhythm GI: Inspection: non-distended GI Palp: Yes Soft to palpation, No Tenderness to palpation present (GI) and No Guarding due to palpation present (GI) Auscultation: normal bowel sounds : External Female Exam: normal external appearance Speculum Exam - Vagina: normal appearance of the vagina Speculum Exam - Cervix: normal appearance of the cervix ( cervix 3/75/1. AROM clear. FHTs reassuring) Skin: General skin exam: no rashes or lesions noted Extrem: General: normal to inspection and no edema Psych: Mental Status: mental status grossly normal Affect: normal affect H&P: Results Labs Labs: Short CBC 07/20/21 Range/Units 07:10 WBC 12.1 H (4.5-10.0) K/mm3 Hgb 13.6 (12.0-15.0) g/dL Hct 39.4 (37.0-47.0) % Plt Count 343 (150-375) k/mm3 Assessment and Plan Additional Plan impression: Term with favorable cervix Plan: Medical induction of labor. Spontaneous vaginal delivery is expected. She has an epidural candidate
--- NOTE | 2021-07-20 08:15 | WPDANESEPPF ---
Anes - Initial Pre Proc Eval Procedure: labor epidural Date/Time: 07/20/21 08:15 Surgeon: Flavio Marshall MD Pre Op Diagnosis: labor pain Pre Op Diagnosis: iol Patient Data Age: 31 Gender: F Height: 1.54 m Weight: 84.5 kg Last Vital Signs Pulse 70 07/20/21 08:14 BP 111/72 07/20/21 08:14 Pulse Ox 100 07/20/21 08:13 Allergies Allergy/AdvReac Type Severity Reaction Status Date / Time latex Allergy Itching Verified 06/30/21 14:37 orange (food color) Allergy Itching Verified 03/02/21 15:58 red dye AdvReac Gastrointestinal Verified 03/02/21 15:59 Upset Home Medications Medication Instructions Recorded Confirmed Type PNV cmb#95-ferrous fumarate-FA 1 tablet PO DAILY 03/02/21 07/20/21 History [] sertraline [Zoloft] 25 mg PO DAILY 03/02/21 07/20/21 History hydroxyzine HCl 25 mg PO DAILY PRN 04/06/21 07/20/21 History omeprazole 20 mg PO BID 04/06/21 07/20/21 History Laboratory Tests 07/20/21 07/20/21 07/20/21 07:10 07:10 07:10 WBC 12.1 K/mm3 H K/mm3 (4.5-10.0) RBC 4.28 M/mm3 M/mm3 (4.2-5.4) Hgb 13.6 g/dL g/dL (12.0-15.0) Hct 39.4 % % (37.0-47.0) MCV 92.1 fl fl (80-100) MCH 31.8 pg pg (26-34) MCHC 34.5 g/dl g/dl (32-36) RDW 14.6 % H % (11.5-14.5) Plt Count 343 k/mm3 k/mm3 (150-375) MPV 10.5 fl H fl (7.4-10.4) Immature Gran % (Auto) 0.2 % % (0-0.5) Neut % (Auto) 68.7 % % (45.5-73.1) Lymph % (Auto) 23.4 % % (18.3-44.2) [place] % (Auto) 6.6 % % (2.6-8.5) Eos % (Auto) 0.7 % % (0-4.4) Baso % (Auto) 0.4 % % (0.2-1.2) Lymph # (Auto) 2.82 K/mm3 K/mm3 (0.9-3.2) [place] # (Auto) 0.8 K/mm3 H K/mm3 (0.1-0.6) Eos # (Auto) 0.1 K/mm3 K/mm3 (0-0.3) Baso # (Auto) 0.1 K/mm3 K/mm3 (0.0-0.1) Abs Immat Gran (auto) 0.03 K/mm3 K/mm3 (0.00-0.031) Absolute Neuts (auto) 8.3 K/mm3 H K/mm3 (1.3-6.7) Absolute Nucleated RBC 0.0 K/mm3 K/mm3 (0.0-0.012) Nucleated RBC % 0.0 % % (0.0-0.2) RPR Pending Blood Type O Positive Antibody Screen Negative Patient hx anesthesia problems: none Family hx anesthesia problems: none Results Review: All pre-operative results and documents have been reviewed as part of the pre-operative evaluation. [facility] Past Medical History Medical History 24 weeks gestation of Choledocholithiasis with obstruction Nausea and vomiting in adult No significant medical problems Surgical History Surgical History History of tonsillectomy and adenoidectomy Family History Family History Mother Hyperthyroidism Father Asthma Social History Social History Smoking status: Never smoker Alcohol intake: never Substance use: never Spiritual care concerns: No Anes - Eval Final PreProcedure Day of Procedure 07/20/21 08:15 Patient weight: obese ASA classification: II Anesthesia type and monitoring: regional epidural and standard monitoring Results Review: All pre-operative results and documents have been reviewed as part of the pre-operative evaluation. Informed Consent: The patient's anesthetic plan and its attendant risks and benefits were discussed with the patient/family/POA. Questions were solicited and answers provided to the satisfaction of the patient/family/POA.
[2021-07-20] MEDS: SERTRALINE HCL 25 MG TABLET PO (08:48)
--- NOTE | 2021-07-20 11:40 | PM.OBPRVD ---
OB - Delivery Note Procedure Delivery date: 07/20/21 Procedure: mil Intrapartal events: None Induction method: AROM Delivery augmentation: pitocin Delivery monitor: external FHT Route of delivery: Episiotomy description: None Laceration Description: None Specimen: No Quantitative Blood Loss (ml): 58 Disposition: floor Baby Date of : 07/20/21 Time of : 11:31 Weeks of gestation at delivery: 39 Infant gender: Male Weight (pounds): 6 Weight (ounces): 11 presentation: vertex position: Right Occiput Anterior Placenta delivery description: Spontaneous cord vessel description: 3 Vessels score one minute: 9 score five minutes: 9
[2021-07-20] MEDS: OXYTOCIN 30 UNITS/NS 500 ML 30 UNITS/500 ML BAG 125 UNITS IV CONT (12:09)
[2021-07-20] MEDS: WITCH HAZEL 40 PADS 1 PAD TOPICAL (14:16)
--- NOTE | 2021-07-20 14:21 | PC.NURSE ---
Patient transferred to post room #281 per wheelchair from labor and delivery. Support person present. Oriented to unit, room, information board, rooming in, admission packet and security measures. Patient verbalizes understanding.
--- NOTE | 2021-07-20 14:35 | PC.NURSE ---
Mother called out for assist with feeding, sleepy and not waking. Mother reports eagerly fed first feeding and this is 2nd to feed, first without issue. Infant is able to freely thrust tongue past gum ridge and flange both lips. Skin is intact on both nipples, no redness and bruising noted. Reviewed feeding cues, frequencies, duration of feedings, feeding elimination flow sheet, and signs of adequate intake. Demonstrated stimulation techniques to wake infant for feeding. easily awoken with feeding cues noted Assisted with to breast. Reviewed positioning/alignment in cross cradle, holding breast in ?U? hold and guided asymmetrical latch on. Reviewed rational for each. Infant able to latch correctly within a few attempts. nursed eagerly with steady draws and occasional swallowing noted, some pausing noted. Reviewed signs of a correct latch, effective nursing and suck swallow ratio. Suggested mother stimulate while feeding to increase stimulation for milk supply, for increased intake and to assist with maintaining deep latch. was able to maintain latch without discomfort to mother. I Demonstrated how to adjust latch more deeply while feeding as needed. Nipple care reviewed of lanolin after feedings, warm compresses as needed. Instructed mother to call out for RN assistance if she is unable to latch for feeding or she has discomfort with nursing. Instructed feeding should be initiated three hours from start of last feeding or if feeding cues are noted before. Mother voiced understanding of information shared.
[2021-07-20] MEDS: IBUPROFEN 600 MG TABLET PO (18:52)
[2021-07-21] MEDS: IBUPROFEN 600 MG TABLET PO ×3 (00:26→13:20)
[2021-07-21 04:00] VITALS: BP 98/60; PULSE 53; RESP 16; TEMP 36.1
[2021-07-21 05:00] LABS: Hematocrit 33.9 % (37.0-47.0); Hemoglobin 11.7 g/dL (12.0-15.0)
[2021-07-21 06:38] LABS: Rapid Plasma Reagin Non-Reactive (NonReactive)
[2021-07-21] MEDS: SERTRALINE HCL 25 MG TABLET PO (08:25)
[2021-07-21] MEDS: MULTIVIT/MIN/PREN/FOL AC/IRON TABLET 1 TAB PO (08:25)
--- NOTE | 2021-07-21 08:46 | PM.DS ---
DS: Admitting Diagnosis Discharge Date 07/21/2021 Admitting Diagnosis term with favorable cervix DS: Summary Hospital Course Hospital Course: patient was admitted for induction labor at term. She underwent spontaneous vaginal delivery on 07/20/2021. Her hospital course was unremarkable. She remained afebrile. She was up, voiding without difficulty, ambulating, generally without complaints. Time Spent with Patient Time attestation: Total time spent providing and/or coordinating discharge services: Exam Const: General: no acute distress Eyes: General: appearance normal, both eyes and all related structures Neck: Neck: supple and no JVD Thyroid: thyroid normal Resp: Effort & Inspection: normal respiratory effort Auscultation: clear to auscultation bilaterally Cardio: Rate: regular rate Rhythm: regular rhythm GI: Inspection: non-distended GI Palp: Yes Soft to palpation, No Tenderness to palpation present (GI) and No Guarding due to palpation present (GI) Auscultation: normal bowel sounds : General: Yes bladder normal to palpation External Female Exam: normal external appearance Speculum Exam - Vagina: normal vaginal discharge and No vaginal bleeding Speculum Exam - Cervix: nontender Bimanual exam- vagina & uterus: bladder normal to palpation and No Cervical tenderness present OB/external & speculum: No vaginal bleeding Skin: General skin exam: no rashes or lesions noted Extrem: General: normal to inspection and no edema Psych: Mental Status: mental status grossly normal Affect: normal affect DS: Data Data Completed and Pending Labs on day of discharge: Labs from last 24 hours 07/21/21 07/20/21 04:08 07:10 Hgb 11.7 L Hct 33.9 L RPR Non-reactive Discharge Plan Discharge Attending physician on discharge: Flavio Marshall Discharging Clinician: Flavio Marshall Patient Disposition: Home, Self-Care Activity: may shower, no driving and pelvic rest Diet: heart healthy Wound Care Instructions: follow printed instructions Patient Instructions: Antibiotic Form Stand Alone Forms: General Discharge Information Follow-up/Referrals: Flavio Marshall MD [Physician] - Discharge Medications: Continued sertraline [Zoloft] 25 mg Tablet 25 mg PO DAILY RF: 0 PNV [id number] fumarate-FA [] 28 mg iron- 800 mcg Tablet 1 tablet PO DAILY RF: 0 hydroxyzine HCl 25 mg Tablet 25 mg PO DAILY PRN (Reason: Anxiety) RF: 0 omeprazole 20 mg Tablet,Delayed Release (Dr/Ec) 20 mg PO BID RF: 0 Date of admission: 07/20/21 06:28 Primary Care Provider: Nabeel,Kishore Abreu Admitting Provider: Flavio Marshall Attending physician on admission: Flavio Marshall Condition: Stable
--- NOTE | 2021-07-21 08:49 | P.PNOB_ITS ---
OB - PN: Subj Subjective Date/time seen: 07/21/21 08:49 Patient comments: no complaints and pain well controlled baby status: doing well OB - PN: Obj Data Labs CBC & Chem 7: 07/21/21 04:08 Labs: Laboratory Results - last 24 hr 07/20/21 07/21/21 07:10 04:08 Hgb 11.7 L Hct 33.9 L RPR Non-reactive OB - PN A/P Plan day: 1 Plan: routine care, discharge home and follow up 6 weeks Time Spent With Patient Time: Total time spent is greater than 50% in coordination of care (as documented) at patient's floor/unit and/or counseling patient: Time with patient: less than 15 minutes Review of Systems Review of Systems: All systems reviewed & are unremarkable except as noted in HPI and below Exam Const: General: no acute distress Eyes: General: appearance normal, both eyes and all related structures Neck: Neck: supple and no JVD Thyroid: thyroid normal Resp: Effort & Inspection: normal respiratory effort Auscultation: clear to auscultation bilaterally Cardio: Rate: regular rate Rhythm: regular rhythm GI: Inspection: non-distended GI Palp: Yes Soft to palpation, No Tenderness to palpation present (GI) and No Guarding due to palpation present (GI) Auscultation: normal bowel sounds : General: Yes bladder normal to palpation External Female Exam: normal external appearance Speculum Exam - Vagina: normal vaginal discharge and No v aginal bleeding Speculum Exam - Cervix: nontender Bimanual exam- vagina & uterus: bladder normal to palpation and No Cervical tenderness present OB/external & speculum: No vaginal bleeding Skin: General skin exam: no rashes or lesions noted Extrem: General: normal to inspection and no edema Psych: Mental Status: mental status grossly normal Affect: normal affect
--- NOTE | 2021-07-21 09:00 | PC.NURSE ---
Consult with pt., observed mother is able to independently latch with appropriate positioning/alignment. Observed infant has a slightly tight frenulum, discussed how tight frenulum may impact latch and empting the breast. Mother denies discomfort with feedings. Stressed signs of adequate intake and advised to have her Radiologic Technologist evaluate at first appointment. Stressed good nipple care. Infant eagerly latches on first attempt with long rhythmical draws and frequent swallowing noted. She denies any nipple discomfort, is feeding as required and waking infant to feed if needed. Infant has had at least 8 effective feedings in the past 24 hours, and is currently meeting outcomes for weight, output, jaundice and feeding frequencies. Mother states she feels confident to continue effective at home. Reviewed transition to breast milk, signs of adequate intake, and engorgement/relief. Instructed to call ICP if intake/output less than required. Reviewed regular medications mother is taking. Information provided per [place]. Reviewed community resources on the [facility] website and in the Mom/Baby guide. Information on outpatient services provided. Mother has no further questions at this time. Instructed feeding should be initiated three hours from start of last feeding or if feeding cues are noted before until seen by ICP. Mother voiced understanding of information shared.
[2021-07-21 09:22] VITALS: BP 94/63; PULSE 58; RESP 16; TEMP 36.5; O2SAT 100
--- NOTE | 2021-07-21 12:00 | PC.NURSE ---
Patient instructed to view the discharge video Mother & Baby Care, The First Two Weeks . Patient was given the opportunity and encouraged to ask questions. Patient verbalized understanding of information shared and has been given the mother/baby guide for home reference.
[2021-07-21] MEDS: DOCUSATE SODIUM 100 MG CAPSULE (13:21)
[2021-07-22 07:44] VITALS: BP 125/68; PULSE 70; RESP 20; TEMP 36.9; O2SAT 99
== END 2021-07-21 15:44 | disposition home or self-care (01) | DRG 807 ==
LOC: ANHLDR 06:30 → ANHOB2 14:26
PROVIDERS: Admitting Provider Obstetrics & Gynecology; PCP Family Medicine; Visit Provider Obstetrics & Gynecology
DX: O77.0 Labor and delivery complicated by meconium in amniotic fluid (principal); Z37.0 Single live birth; Z3A.39 39 weeks gestation of pregnancy
CPT/HCPCS: 36415; 85014; 85018; 85025; 86592; 86850; 86900; 86901; A9270; J2590; J2795; J7120